=== PATIENT | male | born 1990 | race Hispanic/Latino ===

== ENCOUNTER 2019-07-18 07:59 | Emergency (ER) | payer SELFPAY ==
[2019-07-18 09:39] LABS: Basophils % (Auto) 0.3 % (0.0-1.8); Eosinophils # (Auto) 0.1 K/mm3 (0.0-0.4); Eosinophils % (Auto) 1.1 % (0.0-4.3); Hematocrit 50.7 % (35.5-45.6); Hemoglobin 16.8 gm/dl (11.8-15.2); Lymphocytes # (Auto) 2.6 K/mm3 (1.2-5.4); Lymphocytes % (Auto) 30.7 % (13.4-35.0); Mean Corpuscular HGB Conc 33 % (32-34); Mean Corpuscular Volume 83 fl (84-94); Monocytes # (Auto) 0.7 K/mm3 (0.0-0.8); Monocytes % (Auto) 8.2 % (0.0-7.3); Platelet Count 355 K/mm3 (140-440); Red Blood Count 6.14 M/mm3 (3.65-5.03); Red Cell Distribution Width 12.7 % (13.2-15.2)
[2019-07-18 10:06] LABS: Alanine Aminotransferase 68 units/L (7-56); Albumin 4.5 g/dL (3.9-5); BUN/Creatinine Ratio 11; Blood Urea Nitrogen 8 mg/dL (9-20); Calcium 9.5 mg/dL (8.4-10.2); Hemolysis Index 59
--- NOTE | 2019-07-18 10:34 | Emergency Department Report ---
ED Abdominal Pain HPI - General Chief Complaint: Abdominal Pain Stated Complaint: STOMACH PAIN/2 WKS PAIN Time Seen by Provider: 07/18/19 09:15 Source: patient Mode of arrival: Ambulatory Limitations: No Limitations - History of Present Illness Initial Comments: 29 YO COMES TO ER WITH LUQ ABD PAIN FOR WEEKS. NO N/V/D DID NOT SEE PCP NO OTHER HX ETOH OCC IDENTICAL TWIN BROTHER HAS DM POLYDYPSIA 15 POUND WEIGHT LOSS IN 2 MONTHS MD Complaint: abdominal pain Location: LUQ Radiation: none Migration to: no migration Quality: sharp Improves With: nothing Worsens With: nothing Associated Symptoms: denies other symptoms - Related Data Allergies Allergy/AdvReac Type Severity Reaction Status Date / Time No Known Allergies Allergy Verified 07/18/19 08:22 ED Review of Systems ROS: Stated complaint: STOMACH PAIN/2 WKS PAIN Other details as noted in HPI Comment: All other systems reviewed and negative ED Past Medical Hx - Past Medical History Previous Medical History?: Yes Additional medical history: appendicitis - Surgical History Past Surgical History?: Yes Hx Appendectomy: Yes - Family History Family history: other (IDENTICAL TWIN BROTHER HAS DM) - Social History Smoking Status: Current Every Day Smoker Substance Use Type: Alcohol ED Physical Exam - General Limitations: No Limitations General appearance: alert, in no apparent distress - Head Head exam: Present: atraumatic, normocephalic - Eye Eye exam: Present: normal appearance - ENT ENT exam: Present: mucous membranes moist - Neck Neck exam: Present: normal inspection - Respiratory Respiratory exam: Present: normal lung sounds bilaterally. Absent: respiratory distress - Cardiovascular Cardiovascular Exam: Present: regular rate, normal rhythm. Absent: systolic murmur, diastolic murmur, rubs, gallop - GI/Abdominal GI/Abdominal exam: Present: soft, normal bowel sounds - Rectal Rectal exam: Present: deferred - Extremities Exam Extremities exam: Present: normal inspection - Back Exam Back exam: Present: normal inspection - Neurological Exam Neurological exam: Present: alert, oriented X3 - Psychiatric Psychiatric exam: Present: normal affect, normal mood - Skin Skin exam: Present: warm, dry, intact, normal color. Absent: rash ED Course Vital Signs 07/18/19 08:07 Temperature 97.6 F Pulse Rate 73 Respiratory 16 Rate Blood Pressure 123/81 O2 Sat by Pulse 97 Oximetry ED Medical Decision Making - Lab Data Result diagrams: 07/18/19 09:26 07/18/19 09:26 - Medical Decision Making Labs 07/18/19 07/18/19 07/18/19 09:26 09:26 10:10 WBC 8.6 RBC 6.14 H Hgb 16.8 H Hct 50.7 H MCV 83 L MCH 27 L MCHC 33 RDW 12.7 L Plt Count 355 Lymph % (Auto) 30.7 [place] % (Auto) 8.2 H Eos % (Auto) 1.1 Baso % (Auto) 0.3 Lymph # 2.6 [place] # 0.7 Eos # 0.1 Baso # 0.0 Seg Neutrophils % 59.7 Seg Neutrophils # 5.1 Sodium 137 Potassium 4.7 Chloride 101.3 Carbon Dioxide 22 Anion Gap 18 BUN 8 L Creatinine 0.7 L Estimated GFR > 60 BUN/Creatinine Ratio 11 Glucose 236 H POC Glucose Calcium 9.5 Total Bilirubin 0.80 AST 38 ALT 68 H Alkaline Phosphatase 97 Total Protein 7.9 Albumin 4.5 Albumin/Globulin Ratio 1.3 Lipase 10 L Urine Color Yellow Urine Turbidity Clear Urine pH 7.0 Ur Specific [place] 1.031 H Urine Protein <15 mg/dl Urine Glucose (UA) >=500 Urine Ketones Tr Urine Blood Neg Urine Nitrite Neg Urine Bilirubin Neg Urine Urobilinogen < 2.0 Ur Leukocyte Esterase Neg Urine WBC (Auto) < 1.0 Urine RBC (Auto) 2.0 U Epithel Cells (Auto) 1.0 Urine Mucus Few 07/18/19 10:57 WBC RBC Hgb Hct MCV MCH MCHC RDW Plt Count Lymph % (Auto) [place] % (Auto) Eos % (Auto) Baso % (Auto) Lymph # [place] # Eos # Baso # Seg Neutrophils % Seg Neutrophils # Sodium Potassium Chloride Carbon Dioxide Anion Gap BUN Creatinine Estimated GFR BUN/Creatinine Ratio Glucose POC Glucose 197 H Calcium Total Bilirubin AST ALT Alkaline Phosphatase Total Protein Albumin Albumin/Globulin Ratio Lipase Urine Color Urine Turbidity Urine pH Ur Specific [place] Urine Protein Urine Glucose (UA) Urine Ketones Urine Blood Urine Nitrite Urine Bilirubin Urine Urobilinogen Ur Leukocyte Esterase Urine WBC (Auto) Urine RBC (Auto) U Epithel Cells (Auto) Urine Mucus Vital Signs 07/18/19 08:07 Temperature 97.6 F Pulse Rate 73 Respiratory 16 Rate Blood Pressure 123/81 O2 Sat by Pulse 97 Oximetry LABS NOTED UA NOTED BG NOTED NS X 2 IV NO TACHYCARDIA/HYPOTENSION GIVEN FAMILY HX PT BEING DC TO PCP FOR WORKUP FOR DM PT EDUCATED ON DIET MANAGEMENT FOR HYPERGLYCEMIA ON DC TAKING PO NON ILL NON TOXIC - Differential Diagnosis GASTRITIS/CHOLEY Critical care attestation.: If time is entered above; I have spent that time in minutes in the direct care of this critically ill patient, excluding procedure time. ED Disposition Clinical Impression: Hyperglycemia, Abdominal pain Disposition: DC-01 TO HOME OR SELFCARE Is pt being admited?: No Does the pt Need Aspirin: No Condition: Stable Instructions: Diabetic Hypoglycemia (ED), Meal Planning with Diabetes Exchanges (DC) Additional Instructions: DIABETIC DIET STAY WELL HYDRATED FOLLOW UP WITH PCP FOR WORKUP REFERRAL BELOW [employer] WEBSITE IS A GOOD SOURCE FOR INFORMATION Referrals: ISAIAH DEL REAL MD [Staff Physician] - 3-5 Days Time of Disposition: 11:55
[2019-07-18 10:44] LABS: Bilirubin,Urine NEG (Negative); Blood,Urine NEG (Negative); Color,Urine Yellow (Yellow); Mucus,Urine FEW /HPF; Protein,Urine <15 mg/dL mg/dL (Negative); Urobilinogen,Urine < 2.0 mg/dL (<2.0)
[2019-07-18 10:49] LABS: WBC,Urine < 1.0 /HPF (0.0-6.0)
[2019-07-18] MEDS ORDERED: SODIUM CHLORIDE 0.9% 1000 ML 1,000 ML IV ONE ×2 (10:55→11:48)
[2019-07-18 13:24] VITALS: BP 125/84
== END 2019-07-18 13:23 | disposition home or self-care (01) ==
LOC: ED 07:59
DX: R73.9 Hyperglycemia, unspecified (principal); F17.200 Nicotine dependence, unspecified, uncomplicated; Z90.89 Acquired absence of other organs
CPT/HCPCS: 36415; 80053; 81001; 82962; 83690; 85025; 99283; J7030

== ENCOUNTER 2019-07-23 18:43 | Emergency (ER) | payer SELFPAY ==
--- NOTE | 2019-07-23 19:07 | Event Note ---
ED Screening Note ED Screening Note: left sided abd pain that began since 07/05/19 intermittent episodes of n/v/d states he is also having chest discomfort described as a heaviness no dysuria no hematuria no fever normal BM today occ ETOH This initial assessment/diagnostic orders/clinical plan/treatment(s) is/are subject to change based on patients health status, clinical progression and re- assessment by fellow clinical providers in the ED. Further treatment and workup at subsequent clinical providers discretion. Patient/guardian urged not to elope from the ED as their condition may be serious if not clinically assessed and managed. Initial orders include: labs, XR chest with abd, EKG
--- NOTE | 2019-07-23 19:59 | XRay Report ---
ACUTE ABDOMINAL SERIES WITH PA CHEST, 4 VIEWS INDICATION / CLINICAL INFORMATION: abdominal pain, chest pain. COMPARISON: None available. FINDINGS: PA view of the chest is unremarkable. Normal heart size and normal pulmonary severity. Both lungs are well-expanded and clear. Views of the abdomen demonstrate a normal bowel gas pattern. No dilated loops of bowel and no visible free air. No abnormal calcifications identified. No osseous abnormality. IMPRESSION: No acute abdominal abnormality. No acute pulmonary disease. Signer Name: Gaye Valdez MD Signed: 07/23/2019 7:55 PM Workstation Name: [id number]
[2019-07-23 20:28] LABS: Basophils % (Auto) 0.3 % (0.0-1.8); Eosinophils # (Auto) 0.2 K/mm3 (0.0-0.4); Eosinophils % (Auto) 1.7 % (0.0-4.3); Hematocrit 46.5 % (35.5-45.6); Hemoglobin 15.8 gm/dl (11.8-15.2); Lymphocytes # (Auto) 4.3 K/mm3 (1.2-5.4); Mean Corpuscular HGB Conc 34 % (32-34); Mean Corpuscular Volume 82 fl (84-94); Monocytes # (Auto) 1.2 K/mm3 (0.0-0.8); Monocytes % (Auto) 9.3 % (0.0-7.3); Platelet Count 390 K/mm3 (140-440); Red Cell Distribution Width 12.9 % (13.2-15.2)
[2019-07-23 20:51] LABS: Alanine Aminotransferase 54 units/L (7-56); Albumin 4.5 g/dL (3.9-5); BUN/Creatinine Ratio 9; Blood Urea Nitrogen 6 mg/dL (9-20); Calcium 9.8 mg/dL (8.4-10.2); Hemolysis Index 17
[2019-07-23] MEDS ORDERED: FAMOTIDINE 20 MG/2 ML INJ IV ONE (21:47)
[2019-07-23] MEDS ORDERED: ONDANSETRON 4 MG/2 ML INJ IV ONE (21:47)
[2019-07-23] MEDS ORDERED: DICYCLOMINE 20 MG TAB PO ONE (21:47)
[2019-07-23] MEDS ORDERED: ALUM-MAG HYDROXIDE-SIMETHICONE 200-200-20MG/5ML ORAL LIQD 30 ML PO ONE (21:47)
[2019-07-23] MEDS ORDERED: LIDOCAINE VISCOUS 2% 15 ML ORAL LIQD PO ONE (21:47)
[2019-07-23] MEDS ORDERED: SODIUM CHLORIDE 0.9% 1000 ML 1,000 ML IV ONE (21:48)
[2019-07-23] MEDS ORDERED: KETOROLAC 30 MG/1 ML INJ IV ONE (21:50)
--- NOTE | 2019-07-23 23:19 | Cat Scan Report ---
CT OF THE ABDOMEN AND PELVIS WITH INTRAVENOUS CONTRAST INDICATION / CLINICAL INFORMATION: Mid to left abdominal pain with nausea. TECHNIQUE: The patient received 100 cc Omnipaque [address] scans at this location are performed using CT dose reduction for ALARA by means of automated exposure control. COMPARISON: None available. FINDINGS: ABDOMEN: There are multiple faintly calcified and noncalcified moderate sized stones in the gallbladd er. The gallbladder is significantly distended without wall thickening or bile duct dilatation. There is moderate generalized decreased density of the liver parenchyma compared to the spleen. The pancreas, adrenal glands, kidneys and bowel are normal. No adenopathy is identified. The lung bas es are clear. PELVIS: The distal ureters, urinary bladder and prostate gland are normal. The appendix is not seen a nd there is no evidence of diverticulitis. No abnormal mass or fluid collection is identified. I do n ot see a hernia. No acute osseous abnormality is identified. IMPRESSION: 1. Cholelithiasis. Significantly distended gallbladder raises the possibility of acute cholecystitis. 2. Moderate diffuse fatty infiltration of the liver. Signer Name: Bennie Springer MD Signed: 07/23/2019 11:15 PM Workstation Name: [id number]
--- NOTE | 2019-07-24 02:56 | Ultrasound Report ---
ULTRASOUND ABDOMEN, LIMITED (RIGHT UPPER QUADRANT) INDICATION: Abdominal pain with nausea. COMPARISON: CT of the abdomen and pelvis performed yesterday. FINDINGS: PANCREAS: No significant abnormality. LIVER: 20.6 cm in length with moderate generalized increased echogenicity compared to the right renal cortex. Normal directional blood flow in the main portal vein. GALLBLADDER: Multiple gallstones. The gallbladder is distended without wall thickening. There is gene ralized gallbladder sludge. BILE DUCTS: No significant abnormality. Common bile duct not well seen. FREE FLUID: None. ADDITIONAL FINDINGS: Images of the right kidney are unremarkable. IMPRESSION: 1. Cholelithiasis. Distended gallbladder containing sludge raises the possibility of acute cholecysti tis. 2. Hepatomegaly with evidence of moderate diffuse fatty infiltration. Signer Name: Bennie Springer MD Signed: 07/24/2019 2:52 AM Workstation Name: [id number]
--- NOTE | 2019-07-24 03:52 | Emergency Department Report ---
ED Abdominal Pain HPI - General Chief Complaint: Abdominal Pain Stated Complaint: ABD PIAN,CHEST PAIN Time Seen by Provider: 07/23/19 19:06 Source: patient Mode of arrival: Ambulatory Limitations: No Limitations - History of Present Illness Initial Comments: Patient is a 29-year-old male with history of non-insulin dependent diabetes and does not take any medications presents to the ED with complaint of acute onset persistent epigastric pain that radiates to the right upper quadrant and substernal chest with burning sensation intermittently for the last 2 months, worse in the last 8 hours with nausea and vomiting. Patient denies fever, chills, diarrhea, shortness of breath, back pain, sore throat, headache, dizziness, palpitations, diaphoresis, cough, headache, dysuria or urinary frequency and urgency and constipation. MD Complaint: abdominal pain (epigastric, RUQ), other (nausea and vomiting; substernal burning chest pain) -: Gradual, month(s) (2) Location: RUQ, epigastric Radiation: chest Migration to: no migration Severity: severe Severity scale (0 -10): 7 Quality: aching, sharp, burning Consistency: constant Improves With: nothing Worsens With: eating, vomiting Associated Symptoms: denies other symptoms, nausea, vomiting. denies: diarrhea, fever, chills, constipation, dysuria, hematochezia, melena, hematuria, anorexia, syncope, other - Related Data Previous Rx's Medication Instructions Recorded Last Taken Type Ciprofloxacin HCl [Ciprofloxacin 500 mg PO Q12HR #20 tab 07/24/19 Unknown Rx TAB] Dicyclomine [Bentyl] 20 mg PO Q6H PRN #24 tablet 07/24/19 Unknown Rx Famotidine [Pepcid] 20 mg PO Q12H #60 tablet 07/24/19 Unknown Rx Ondansetron [Zofran Odt] 4 mg PO Q6HR PRN #20 tab.rapdis 07/24/19 Unknown Rx metroNIDAZOLE [Flagyl] 500 mg PO Q8HR #30 tablet 07/24/19 Unknown Rx traMADoL [Ultram 50 MG tab] 50 mg PO Q6HR PRN #12 tablet 07/24/19 Unknown Rx Allergies Allergy/AdvReac Type Severity Reaction Status Date / Time No Known Allergies Allergy Verified 07/18/19 08:22 ED Review of Systems ROS: Stated complaint: ABD PIAN,CHEST PAIN Other details as noted in HPI Constitutional: denies: chills, fever Eyes: denies: eye pain, eye discharge, vision change ENT: denies: ear pain, throat pain Respiratory: denies: cough, shortness of breath, wheezing Cardiovascular: chest pain. denies: palpitations Endocrine: no symptoms reported Gastrointestinal: abdominal pain (epigastric, RUQ), nausea, vomiting. denies: diarrhea Genitourinary: denies: urgency, dysuria Musculoskeletal: denies: back pain, joint swelling, arthralgia Skin: denies: rash, lesions Neurological: denies: headache, weakness, paresthesias Psychiatric: denies: anxiety, depression Hematological/Lymphatic: denies: easy bleeding, easy bruising ED Past Medical Hx - Past Medical History Previous Medical History?: Yes Additional medical history: appendicitis - Surgical History Past Surgical History?: Yes Hx Appendectomy: Yes - Social History Smoking Status: Never Smoker Substance Use Type: None - Medications Home Medications: Home Medications Medication Instructions Recorded Confirmed Last Taken Type Ciprofloxacin HCl [Ciprofloxacin 500 mg PO Q12HR #20 tab 07/24/19 Unknown Rx TAB] Dicyclomine [Bentyl] 20 mg PO Q6H PRN #24 tablet 07/24/19 Unknown Rx Famotidine [Pepcid] 20 mg PO Q12H #60 tablet 07/24/19 Unknown Rx Ondansetron [Zofran Odt] 4 mg PO Q6HR PRN #20 tab.rapdis 07/24/19 Unknown Rx metroNIDAZOLE [Flagyl] 500 mg PO Q8HR #30 tablet 07/24/19 Unknown Rx traMADoL [Ultram 50 MG tab] 50 mg PO Q6HR PRN #12 tablet 07/24/19 Unknown Rx ED Physical Exam - General Limitations: No Limitations General appearance: alert, in no apparent distress - Head Head exam: Present: atraumatic, normocephalic, normal inspection - Eye Eye exam: Present: normal appearance, PERRL, EOMI Pupils: Present: normal accommodation - ENT ENT exam: Present: normal exam, normal orophraynx, mucous membranes moist, TM's normal bilaterally, normal external ear exam - Neck Neck exam: Present: normal inspection, full ROM - Respiratory Respiratory exam: Present: normal lung sounds bilaterally. Absent: respiratory distress, wheezes, chest wall tenderness, accessory muscle use, decreased breath sounds, prolonged expiratory - Cardiovascular Cardiovascular Exam: Present: regular rate, normal rhythm, normal heart sounds. Absent: systolic murmur, diastolic murmur, rubs, gallop - GI/Abdominal GI/Abdominal exam: Present: soft, tenderness (epigastric, RUQ), normal bowel sounds. Absent: guarding, rebound, hyperactive bowel sounds, hypoactive bowel sounds, organomegaly - Extremities Exam Extremities exam: Present: normal inspection, full ROM, normal capillary refill - Back Exam Back exam: Present: normal inspection, full ROM. Absent: tenderness, CVA tenderness (R), CVA tenderness (L), muscle spasm, paraspinal tenderness, vertebral tenderness - Neurological Exam Neurological exam: Present: alert, oriented X3, CN II-XII intact, normal gait, reflexes normal - Psychiatric Psychiatric exam: Present: normal affect, normal mood - Skin Skin exam: Present: warm, dry, intact, normal color. Absent: rash ED Course Vital Signs 07/23/19 19:08 Temperature 98 F Pulse Rate 98 H Respiratory 18 Rate Blood Pressure 138/80 O2 Sat by Pulse 100 Oximetry ED Medical Decision Making - Lab Data Result diagrams: 07/23/19 19:48 07/23/19 19:48 - EKG Data EKG shows normal: sinus rhythm Rate: normal - EKG Data Interpretation: normal EKG, nonspecific ST-T wave jw 07/24/19 03:53 The EKG shows normal sinus rhythm with ventricular rate of 82 beats per minute, with ST elevation suggestive of normal early repolarization pattern - Radiology Data Radiology results: report reviewed, image reviewed Findings [facility] [address] [place] [address] XRay Report Signed Patient: PÉREZ AVILA MR#: [id number] : 1990 Acct:[id number] Age/Sex: 29 / M ADM Date: 07/23/19 Loc: ED Attending Dr: Ordering Physician: LEESA VASQUEZ Date of Service: 07/23/19 Procedure(s): XR abd series w cxr 1V Accession Number(s): [id number] cc: LEESA VASQUEZ Fluoro Time In Minutes: ACUTE ABDOMINAL SERIES WITH PA CHEST, 4 VIEWS INDICATION / CLINICAL INFORMATION: abdominal pain, chest pain. COMPARISON: None available. FINDINGS: PA view of the chest is unremarkable. Normal heart size and normal pulmonary severity. Both lungs are well-expanded and clear. Views of the abdomen demonstrate a normal bowel gas pattern. No dilated loops of bowel and no visible free air. No abnormal calcifications identified. No osseous abnormality. IMPRESSION: No acute abdominal abnormality. No acute pulmonary disease. Signer Name: Gaye Valdez MD Signed: 07/23/2019 7:55 PM Workstation Name: [id number] Transcribed By: JR Dictated By: Gaye Valdez MD Electronically Authenticated By: Gaye Valdez MD Signed Date/Time: 07/23/191954 DD/ 53 -- Findings [facility] [address] [place] [address] Cat Scan Report Signed Patient: PÉERZ AVILA MR#: [id number] : 1990 Acct:[id number] Age/Sex: 29 / M ADM Date: 07/23/19 Loc: ED Attending Dr: Ordering Physician: LEESA MAR Date of Service: 07/23/19 Procedure(s): CT abdomen pelvis w con Accession Number(s): [id number] cc: LEESA MAR CT OF THE ABDOMEN AND PELVIS WITH INTRAVENOUS CONTRAST INDICATION / CLINICAL INFORMATION: Mid to left abdominal pain with nausea. TECHNIQUE: The patient received 100 cc Omnipaque [address] scans at this location are performed using CT dose reduction for ALARA by means of automated exposure c ontrol. COMPARISON: None available. FINDINGS: ABDOMEN: There are multiple faintly calcified and noncalcified moderate sized stones in the gallbladder. The gallbladder is significantly distended without wall thickening or bile duct dilatation. There is moderate generalized decreased density of the liver parenchyma compared to the spleen. The pancreas, adrenal glands, kidneys and bowel are normal. No adenopathy is identified. The lung bases are clear. PELVIS: The distal ureters, urinary bladder and prostate gland are normal. The appendix is not seen and there is no evidence of diverticulitis. No abnormal mass or fluid collection is identified. I do not see a hernia. No acute osseous abnormality is identified. IMPRESSION: 1. Cholelithiasis. Significantly distended gallbladder raises the possibility of acute cholecystitis. 2. Moderate diffuse fatty infiltration of the liver. Signer Name: Bennie Springer MD Signed: 07/23/2019 11:15 PM Workstation Name: [id number] Transcribed By: RT Dictated By: Bennie Springer MD Electronically Authenticated By: Bennie Springer MD Signed Date/Time: 07/23/192314 DD/ 10 TD/TT: --------- Findings [facility] [address] [place] [address] Ultrasound Report Signed Patient: PÉREZ AVILA MR#: [id number] : 1990 Acct:[id number] Age/Sex: 29 / M ADM Date: 07/23/19 Loc: ED Attending Dr: Ordering Physician: LEESA MAR Date of Service: 07/24/19 Procedure(s): US abdomen limited Accession Number(s): [id number] cc: LEESA MAR ULTRASOUND ABDOMEN, LIMITED (RIGHT UPPER QUADRANT) INDICATION: Abdominal pain with nausea. COMPARISON: CT of the abdomen and pelvis performed yesterday. FINDINGS: PANCREAS: No significant abnormality. LIVER: 20.6 cm in length with moderate generalized increased echogenicity compared to the right renal cortex. Normal directional blood flow in the main portal vein. GALLBLADDER: Multiple gallstones. The gallbladder is distended without wall thickening. There is generalized gallbladder sludge. BILE DUCTS: No significant abnormality. Common bile duct not well seen. FREE FLUID: None. ADDITIONAL FINDINGS: Images of the right kidney are unremarkable. IMPRESSION: 1. Cholelithiasis. Distended gallbladder containing sludge raises the possibility of acute cholecystitis. 2. Hepatomegaly with evidence of moderate diffuse fatty infiltration. Signer Name: Bennie Springer MD Signed: 07/24/2019 2:52 AM Workstation Name: [id number] Transcribed By: RT Dictated By: Bennie Springer MD Electronically Authenticated By: Bennie Springer MD Signed Date/Time: 07/24/19 0252 - Medical Decision Making This is a 29-year-old male who presented to the ED with complaint of acute onset persistent epigastric pain that radiates to the substernal chest and right upper quadrant area with a burning sensation, nausea and vomiting intermittently for the last 2 months, but worse in the last 8 hours. In the ED, patient is alert and oriented 3 and is not in distress. The patient was treated for pain in the ED, also given antiemetics and antacids in the ED. On reevaluation, patient's pain and nausea and vomiting resolved with medications. The EKG shows normal sinus rhythm with a ventricular rate of [address] elevation suggestive of probable normal early repolarization pattern. Lab test results show acute leukocytosis of 12,600, acute hyponatremia 132 mmol per liter and hyperglycemia of 173 mg/dL. The rest of the lab test results are nonactionable. Chest x-ray shows no acute cardiopulmonary M Lauro teas or pneumonitis. KUB abdomen x-ray shows nonspecific abdominal gas patterns with no peritoneal air or small bowel obstruction. Abdomen pelvis CT scan with contrast shows cholelithiasis with significantly distended gallbladder which raises the possibility of acute cholecystitis. There is also moderate diffuse fatty infiltration of the liver. The gallbladder ultrasound again shows cholelithiasis with distended gallbladder containing sludge raises the possibility of acute cholecystitis. Hepatomegaly with evidence of moderate diffuse fatty infiltration also seen. These findings were discussed with the ED attending physician Dr. Robins about his advised that the patient be discharged home empirically with oral antibiotics and the patient be referred to the general surgeon telecommunications project manager Dr. Grady for follow-up. Patient will definitely sent home on oral antibiotics, Flagyl and ciprofloxacin, pain medications, antacids and antiemetics, and was advised and encouraged to contact Dr. Grady's office first thing in the morning to schedule a follow-up appo intment. Patient was highly advised to return to the ED immediately if symptoms get worse. - Differential Diagnosis Cholelithiasis; Cholecystitis; GERD; ACS; Gastroenteritis; Gastritis Critical care attestation.: If time is entered above; I have spent that time in minutes in the direct care of this critically ill patient, excluding procedure time. ED Disposition Clinical Impression: Nausea and vomiting in adult, Hyperglycemia Abdominal pain Qualifiers: Abdominal location: epigastric Qualified Code(s): R10.13 - Epigastric pain Cholelithiasis Qualifiers: Cholelithiasis location: gallbladder Cholecystitis acuity: acute Biliary obst ruction: without biliary obstruction GERD (gastroesophageal reflux disease) Qualifiers: Esophagitis presence: without esophagitis Qualified Code(s): K21.9 - Gastro- esophageal reflux disease without esophagitis Disposition: TO HOME OR SELFCARE Is pt being admited?: No Does the pt Need Aspirin: No Condition: Stable Instructions: Cholelithiasis (ED), Biliary Colic (ED), Abdominal Pain (ED), Acute Nausea and Vomiting (ED), Gastroesophageal Reflux Disease (ED) Additional Instructions: Take medications with food, drink plenty of fluids and follow-up with the general surgeon Dr. Grady in 24-48 hours for further evaluation. Please contact Dr. Grady's office presently in the morning today 07/24/2019 to schedule a follow-up appointment. Return to the ED immediately if symptoms get worse. Prescriptions: Dicyclomine [Bentyl] 20 mg PO Q6H PRN #24 tablet PRN Reason: Nausea Ciprofloxacin HCl [Ciprofloxacin TAB] 500 mg PO Q12HR #20 tab metroNIDAZOLE [Flagyl] 500 mg PO Q8HR #30 tablet Famotidine [Pepcid] 20 mg PO Q12H #60 tablet traMADoL [Ultram 50 MG tab] 50 mg PO Q6HR PRN #12 tablet PRN Reason: Pain Ondansetron [Zofran Odt] 4 mg PO Q6HR PRN #20 tab.rapdis PRN Reason: Nausea Referrals: STARLA GRADY MD [Staff Physician] - [facility] Time of Disposition: 04:10 Print Language: ITALIAN
[2019-07-24 04:45] VITALS: BP 120/82
== END 2019-07-24 04:48 | disposition home or self-care (01) ==
LOC: ED 18:43
DX: K21.9 Gastro-esophageal reflux disease without esophagitis (principal); K80.80 Other cholelithiasis without obstruction; R73.9 Hyperglycemia, unspecified; Z79.899 Other long term (current) drug therapy; Z90.49 Acquired absence of other specified parts of digestive tract
CPT/HCPCS: 36415; 74022; 74177; 76705; 80053; 83690; 84484; 85025; 93005; 93010; 96361; 96374; 96375; 99285; J1885; J2405; J7030; Q9967

== ENCOUNTER 2019-07-31 16:19 | Inpatient (IN) | payer SELFPAY ==
[2019-07-31 19:24] LABS: Basophils # (Auto) 0.1 K/mm3 (0.0-0.1); Basophils % (Auto) 0.6 % (0.0-1.8); Eosinophils # (Auto) 0.2 K/mm3 (0.0-0.4); Eosinophils % (Auto) 1.4 % (0.0-4.3); Hematocrit 43.2 % (35.5-45.6); Hemoglobin 14.5 gm/dl (11.8-15.2); Lymphocytes # (Auto) 3.8 K/mm3 (1.2-5.4); Lymphocytes % (Auto) 28.9 % (13.4-35.0); Mean Corpuscular HGB Conc 34 % (32-34); Mean Corpuscular Volume 82 fl (84-94); Monocytes # (Auto) 1.6 K/mm3 (0.0-0.8); Platelet Count 515 K/mm3 (140-440); Red Blood Count 5.28 M/mm3 (3.65-5.03); Red Cell Distribution Width 12.6 % (13.2-15.2)
[2019-07-31] MEDS ORDERED: MORPHINE 2 MG/1 ML INJ IV ONE (19:39)
[2019-07-31] MEDS ORDERED: SODIUM CHLORIDE 0.9% 1000 ML 1,000 ML IV ONE (19:39)
[2019-07-31] MEDS ORDERED: ONDANSETRON 4 MG/2 ML INJ IV ONE (19:39)
[2019-07-31 19:52] LABS: Alanine Aminotransferase 29 units/L (7-56); Albumin 4.4 g/dL (3.9-5); BUN/Creatinine Ratio 12; Blood Urea Nitrogen 7 mg/dL (9-20); Calcium 9.5 mg/dL (8.4-10.2); Hemolysis Index 26
[2019-07-31 20:06] LABS: Bilirubin,Urine NEG (Negative); Blood,Urine NEG (Negative); Color,Urine Yellow (Yellow); Mucus,Urine FEW /HPF; Protein,Urine <15 mg/dL mg/dL (Negative); Urobilinogen,Urine < 2.0 mg/dL (<2.0)
[2019-07-31] MEDS ORDERED: PIPERACIL/TAZOBACTA 4.5/NS 100 4.5 GM/100 ML VIAL IV ONE (20:06)
--- NOTE | 2019-07-31 20:47 | Emergency Department Report ---
ED Abdominal Pain HPI - General Chief Complaint: Abdominal Pain Stated Complaint: POSS GALLSTONE/ABD/BACK PAIN Time Seen by Provider: 07/31/19 19:01 Source: patient Mode of arrival: Ambulatory Limitations: No Limitations - History of Present Illness Initial Comments: This is a 29-year-old male nontoxic, well nourished in appearance, no acute signs of distress presents to the ED with c/o of nausea and vomiting and abdominal pain 1 month. Patient describes vomiting as food content and yellow gastric acid. Patient describes abdominal pain as cramping and aching with level of 8/10 to to right upper quad. Patient denies chest pain, short of breath, fever, chills, headache, stiff neck, numbness or tingling. Patient denies any diarrhea or constipation. Patient denies any recent travels. Patient denies any allergies. MD Complaint: abdominal pain -: month(s) (1) Location: RUQ Radiation: R flank Migration to: no migration Severity: mild Severity scale (0 -10): 8 Quality: cramping, aching Consistency: constant Improves With: nothing Worsens With: nothing Associated Symptoms: nausea, vomiting. denies: diarrhea, fever, chills, constipation, dysuria, hematemesis, hematochezia, melena, hematuria, anorexia, syncope - Related Data Previous Rx's Medication Instructions Recorded Last Taken Type Ciprofloxacin HCl [Ciprofloxacin 500 mg PO Q12HR #20 tab 07/24/19 Unknown Rx TAB] Dicyclomine [Bentyl] 20 mg PO Q6H PRN #24 tablet 07/24/19 Unknown Rx Famotidine [Pepcid] 20 mg PO Q12H #60 tablet 07/24/19 Unknown Rx Ondansetron [Zofran Odt] 4 mg PO Q6HR PRN #20 tab.rapdis 07/24/19 Unknown Rx metroNIDAZOLE [Flagyl] 500 mg PO Q8HR #30 tablet 07/24/19 Unknown Rx traMADoL [Ultram 50 MG tab] 50 mg PO Q6HR PRN #12 tablet 07/24/19 Unknown Rx Allergies Allergy/AdvReac Type Severity Reaction Status Date / Time No Known Allergies Allergy Verified 07/18/19 08:22 ED Review of Systems ROS: Stated complaint: POSS GALLSTONE/ABD/BACK PAIN Other details as noted in HPI Constitutional: denies: chills, fever Eyes: denies: eye pain, eye discharge, vision change ENT: denies: ear pain, throat pain Respiratory: denies: cough, shortness of breath, wheezing Cardiovascular: denies: chest pain, palpitations Endocrine: no symptoms reported Gastrointestinal: abdominal pain, nausea, vomiting. denies: diarrhea Genitourinary: denies: urgency, dysuria Musculoskeletal: denies: back pain, joint swelling, arthralgia Skin: denies: rash, lesions Neurological: denies: headache, weakness, paresthesias Psychiatric: denies: anxiety, depression Hematological/Lymphatic: denies: easy bleeding, easy bruising ED Past Medical Hx - Past Medical History Previous Medical History?: No Additional medical history: gallstone - Surgical History Past Surgical History?: Yes Hx Appendectomy: Yes - Social History Smoking Status: Never Smoker Substance Use Type: None - Medications Home Medications: Home Medications Medication Instructions Recorded Confirmed Last Taken Type Ciprofloxacin HCl [Ciprofloxacin 500 mg PO Q12HR #20 tab 07/24/19 07/31/19 Unknown Rx TAB] Dicyclomine [Bentyl] 20 mg PO Q6H PRN #24 tablet 07/24/19 07/31/19 Unknown Rx Famotidine [Pepcid] 20 mg PO Q12H #60 tablet 07/24/19 07/31/19 Unknown Rx Ondansetron [Zofran Odt] 4 mg PO Q6HR PRN #20 tab.rapdis 07/24/19 07/31/19 Unknown Rx metroNIDAZOLE [Flagyl] 500 mg PO Q8HR #30 tablet 07/24/19 07/31/19 Unknown Rx traMADoL [Ultram 50 MG tab] 50 mg PO Q6HR PRN #12 tablet 07/24/19 07/31/19 Unknown Rx ED Physical Exam - General Limitations: No Limitations General appearance: alert, in no apparent distress - Head Head exam: Present: atraumatic, normocephalic - Eye Eye exam: Present: normal appearance - Neck Neck exam: Present: normal inspection, full ROM. Absent: tenderness, meningismus, lymphadenopathy - Respiratory Respiratory exam: Present: normal lung sounds bilaterally. Absent: respiratory distress, wheezes, rales, rhonchi, stridor, chest wall tenderness, accessory muscle use, decreased breath sounds, prolonged expiratory - Cardiovascular Cardiovascular Exam: Present: regular rate, normal rhythm, normal heart sounds. Absent: bradycardia, tachycardia, irregular rhythm, systolic murmur, diastolic murmur, rubs, gallop - GI/Abdominal GI/Abdominal exam: Present: soft, tenderness, normal bowel sounds. Absent: dist ended, guarding, rebound, rigid, diminished bowel sounds - Extremities Exam Extremities exam: Present: normal inspection, full ROM - Back Exam Back exam: Present: normal inspection, full ROM. Absent: tenderness, CVA tende rness (R), CVA tenderness (L), muscle spasm, paraspinal tenderness, vertebral tenderness, rash noted - Neurological Exam Neurological exam: Present: alert, oriented X3, normal gait - Psychiatric Psychiatric exam: Present: normal affect, normal mood - Skin Skin exam: Present: warm, dry, intact, normal color. Absent: rash ED Course Vital Signs 07/31/19 07/31/19 07/31/19 19:00 20:15 20:45 Temperature 98.1 F Pulse Rate 84 Respiratory 18 18 18 Rate Blood Pressure 148/87 Blood Pressure [Left] O2 Sat by Pulse 100 Oximetry 07/31/19 22:30 Temperature 97.5 F L Pulse Rate 72 Respiratory 16 Rate Blood Pressure Blood Pressure 121/71 [Left] O2 Sat by Pulse 99 Oximetry - Reevaluation(s) Reevaluation #1: 07/31/19 20:52 Patient is speaking in full sentences with no signs of distress noted. - Consultations Consultation #1: 07/31/19 20:[address] Velasquez (general surgeon) about patient history, physical exam, and previous US/CT results and stated place patient NPO, IV ant ibiotics and admitted patient on hospitalist. Consultation #2: 07/31/19 23:51 Patient has been consulted with Dr. Merino (hospitalist) about patient history, physical exam, and accepts patient to services. ED Medical Decision Making - Lab Data Result diagrams: 07/31/19 19:10 07/31/19 19:10 - Medical Decision Making 29-year-old male that presents with acute cholecystitis. Patient is stable and was examined by me. Patient was consulted with general surgeon as well as duarte berkowitz. Patient is admitted with hospitalist services. Patient placed on nothing by mouth, receive Zosyn, IV fluids. Labs obtained. At time of admission, the patient does not seem toxic or ill in appearance. No acute signs of distress noted. Patient agrees to admission treatment plan of care. No further questions noted by the patient. Critical care attestation.: If time is entered above; I have spent that time in minutes in the direct care of this critically ill patient, excluding procedure time. ED Disposition Clinical Impression: Acute cholecystitis, Intractable pain Disposition: OP ADMIT IP TO THIS HOSP Is pt being admited?: Yes Does the pt Need Aspirin: No Condition: Stable
[2019-07-31] MEDS ORDERED: ONDANSETRON 4 MG/2 ML INJ IV PRN (22:08)
[2019-07-31] MEDS ORDERED: ACETAMINOPHEN 325 MG TAB PO PRN (22:08)
--- NOTE | 2019-07-31 23:27 | History and Physical Report ---
History of Present Illness Date of examination: 07/31/19 Date of admission: 07/31/19 22:08 Chief complaint: Abdominal pain History of present illness: 29-year-old male presenting to the emergency room today complaining of abdominal pain that has been ongoing for about a month. He was seen in the emergency room sometime in June 2019 with similar complaints. Indicates he was diagnosed with some gallstones and discharged home. He has been having some nausea and vomiting and associated abdominal pain. Abdominal pain is said to be crampy and more on the right upper abdomen. There is no no relieving or exacerbating factor. He denies any fever or chills, de nies any chest pain or shortness of breath. He also indicates that he has had 1 episode of loose stool today. He denies any bright red blood per rectum and denies any black stool. Evaluation in the emergency room today reveals cholecystitis. General surgeon has been consulted and patient will be promptly evaluated. Past History Past Medical History: No medical history Past Surgical History: appendectomy Social history: smoking (Smokes 1 or 2 cigarettes a month), alcohol abuse (Drinks alcohol occasionally) Family history: other (History of gallstones in the family, father and brother had diabetes mellitus) Medications and Allergies Allergies Allergy/AdvReac Type Severity Reaction Status Date / Time No Known Allergies Allergy Verified 07/18/19 08:22 Home Medications Medication Instructions Recorded Confirmed Last Taken Type Ciprofloxacin HCl [Ciprofloxacin 500 mg PO Q12HR #20 tab 07/24/19 07/31/19 Unknown Rx TAB] Dicyclomine [Bentyl] 20 mg PO Q6H PRN #24 tablet 07/24/19 07/31/19 Unknown Rx Famotidine [Pepcid] 20 mg PO Q12H #60 tablet 07/24/19 07/31/19 Unknown Rx Ondansetron [Zofran Odt] 4 mg PO Q6HR PRN #20 tab.rapdis 07/24/19 07/31/19 Unknown Rx metroNIDAZOLE [Flagyl] 500 mg PO Q8HR #30 tablet 07/24/19 07/31/19 Unknown Rx traMADoL [Ultram 50 MG tab] 50 mg PO Q6HR PRN #12 tablet 07/24/19 07/31/19 Unknown Rx Active Meds: Active Medications Acetaminophen (Tylenol) 650 mg PO Q4H PRN PRN Reason: Pain MILD(1-3)/Fever >100.5/HAQ Sodium Chloride (Nacl 0.9% 1000 Ml) 1,000 mls @ 125 mls/hr IV DIRECT HEATHER Morphine Sulfate (Morphine) 2 mg IV Q4H PRN PRN Reason: Pain, Moderate (4-6) Ondansetron HCl (Zofran) 4 mg IV Q8H PRN PRN Reason: Nausea And Vomiting Sodium Chloride (Sodium Chloride Flush Syringe 10 Ml) 10 ml IV BID HEATHER Sodium Chloride (Sodium Chloride Flush Syringe 10 Ml) 10 ml IV PRN PRN PRN Reason: LINE FLUSH Review of Systems Constitutional: no weight loss, no fever, no chills Ears, nose, mouth and throat: no nasal congestion, no nasal discharge Cardiovascular: no chest pain, no palpitations, no edema, no syncope, no shortness of breath Respiratory: no cough with sputum, no shortness of breath, no congestion Gastrointestinal: abdominal pain, nausea, diarrhea, no vomiting Genitourinary Male: no dysuria, no hematuria Integumentary: no rash, no pruritis Neurological: no weakness, no syncope, no vertigo, no headaches Exam - Constitutional Vitals: Temp Pulse Resp BP Pulse Ox 97.5 F L 72 16 121/71 99 07/31/19 22:30 07/31/19 22:30 07/31/19 22:30 07/31/19 22:30 07/31/19 22:30 General appearance: Present: no acute distress, well-nourished - EENT Eyes: Present: PERRL, EOM intact ENT: hearing intact, clear oral mucosa, dentition normal - Neck Neck: Present: supple, normal ROM, rigidity - Respiratory Respiratory: bilateral: CTA - Cardiovascular Rhythm: regular Heart Sounds: Present: S1 & S2 - Extremities Extremities: no ischemia, No edema, Full ROM Peripheral Pulses: within normal limits - Abdominal General gastrointestinal: Present: soft, tender, non-distended Localized gastrointestinal: tender: RUQ, guarding: RUQ - Integumentary Integumentary: Present: clear, warm, dry - Musculoskeletal Musculoskeletal: strength equal bilaterally - Psychiatric Psychiatric: appropriate mood/affect, intact judgment & insight, cooperative - Neurologic Neurologic: CNII-XII intact, moves all extremities Results - Labs CBC & Chem 7: 07/31/19 19:10 07/31/19 19:10 Labs: Abnormal lab results 07/31/19 07/31/19 Range/Units 19:10 19:10 WBC 13.0 H (4.5-11.0) K/mm3 RBC 5.28 H (3.65-5.03) M/mm3 MCV 82 L (84-94) fl MCH 27 L (28-32) pg RDW 12.6 L (13.2-15.2) % Plt Count 515 H (140-440) K/mm3 Pitkin % (Auto) 12.0 H (0.0-7.3) % Pitkin # 1.6 H (0.0-0.8) K/mm3 BUN 7 L (9-20) mg/dL Creatinine 0.6 L (0.8-1.5) mg/dL Glucose 130 H (75-100) mg/dL Lipase 11 L (13-60) units/L Assessment and Plan - Patient Problems (1) Cholecystitis Current Visit: Yes Status: Acute Plan to address problem: Patient has been placed n.p.o. General surgeon has been consulted patient will be promptly evaluated. He is also placed on empiric IV antibiotics. (2) Abdominal pain Current Visit: No Status: Acute Qualifiers: Abdominal location: epigastric Qualified Code(s): R10.13 - Epigastric pain Plan to address problem: Pain secondary to cholecystitis. Place patient on IV analgesic medication as needed. (3) Nausea and vomiting in adult Current Visit: No Status: Acute Plan to address problem: Has been placed on IV Zofran. We also placed on IV fluid. (4) DVT prophylaxis Current Visit: Yes Status: Acute Plan to address problem: We will place him sequential compression device.
[2019-08-01] MEDS: SODIUM CHLORIDE 0.9% 1000 ML 1,000 ML IV SCH ×3 (00:35→21:24)
[2019-08-01] MEDS: MORPHINE 2 MG/1 ML INJ IV PRN ×3 (01:08→09:25)
[2019-08-01] MEDS: PIPERACIL/TAZOBACTA 4.5/NS 100 4.5 GM/100 ML VIAL IV SCH (05:21)
[2019-08-01] MEDS ORDERED: PIPERACILLIN/TAZOBACTAM 3.375 3.375 GM/50 ML BAG IV SCH (06:00)
[2019-08-01 07:22] LABS: Basophils % (Auto) 0.2 % (0.0-1.8); Eosinophils # (Auto) 0.2 K/mm3 (0.0-0.4); Eosinophils % (Auto) 1.8 % (0.0-4.3); Hematocrit 42.2 % (35.5-45.6); Hemoglobin 14.3 gm/dl (11.8-15.2); Lymphocytes # (Auto) 3.5 K/mm3 (1.2-5.4); Lymphocytes % (Auto) 35.3 % (13.4-35.0); Mean Corpuscular HGB Conc 34 % (32-34); Mean Corpuscular Volume 82 fl (84-94); Monocytes # (Auto) 1.2 K/mm3 (0.0-0.8); Monocytes % (Auto) 12.5 % (0.0-7.3); Platelet Count 472 K/mm3 (140-440); Red Blood Count 5.13 M/mm3 (3.65-5.03); Red Cell Distribution Width 12.7 % (13.2-15.2)
[2019-08-01 07:26] LABS: INR 1.17 (0.87-1.13)
[2019-08-01 07:27] LABS: Partial Thromboplastin Time 33.7 Sec. (24.2-36.6)
[2019-08-01 07:40] LABS: BUN/Creatinine Ratio 9; Blood Urea Nitrogen 6 mg/dL (9-20); Calcium 9.2 mg/dL (8.4-10.2); Hemolysis Index 1
--- NOTE | 2019-08-01 09:56 | Consultation ---
History of Present Illness Consult date: 08/01/19 Reason for consult: gallstones Chief complaint: abdominal pain - History of present illness History of present illness: A 1-year-old male with no past medical history presented to the emergency room with complaints of epigastric abdominal pain radiating to his back that has been constant. The patient presented to additional times last 2 weeks with similar pain. He was found to have gallstones but was managed conservatively with antibiotics and diet modification and discharged home. This time he states, despite only eating solid and drinking Gatorade, his pain returned and is persistent and severe. The pain is sharp. There are no alleviating or exacerbating factors. He denies fevers, chills, chest pain, shortness of breath. He did have mild nausea but no vomiting. Past History Past Medical History: No medical history Past Surgical History: appendectomy (open) Social history: smoking (Smokes 1 or 2 cigarettes a month), alcohol abuse (Drinks alcohol occasionally) Family history: other (History of gallstones in the family, father and brother had diabetes mellitus) Medications and Allergies Allergies Allergy/AdvReac Type Severity Reaction Status Date / Time No Known Allergies Allergy Verified 07/18/19 08:22 Home Medications Medication Instructions Recorded Confirmed Last Taken Type Ciprofloxacin HCl [Ciprofloxacin 500 mg PO Q12HR #20 tab 07/24/19 07/31/19 Unknown Rx TAB] Dicyclomine [Bentyl] 20 mg PO Q6H PRN #24 tablet 07/24/19 07/31/19 Unknown Rx Famotidine [Pepcid] 20 mg PO Q12H #60 tablet 07/24/19 07/31/19 Unknown Rx Ondansetron [Zofran Odt] 4 mg PO Q6HR PRN #20 tab.rapdis 07/24/19 07/31/19 Unknown Rx metroNIDAZOLE [Flagyl] 500 mg PO Q8HR #30 tablet 07/24/19 07/31/19 Unknown Rx traMADoL [Ultram 50 MG tab] 50 mg PO Q6HR PRN #12 tablet 07/24/19 07/31/19 Unknown Rx Active Meds: Active Medications Acetaminophen (Tylenol) 650 mg PO Q4H PRN PRN Reason: Pain MILD(1-3)/Fever >100.5/HAQ Sodium Chloride (Nacl 0.9% 1000 Ml) 1,000 mls @ 125 mls/hr IV DIRECT HEATHER Last Admin: 08/01/19 08:34 Dose: 125 mls/hr Documented by: Piperacillin Sod/Tazobactam Sod (Zosyn/Ns 4.5gm/100ml) 4.5 gm in 100 mls @ 200 mls/hr IV Q8HR HEATHER; Protocol Last Admin: 08/01/19 05:21 Dose: 200 mls/hr Documented by: Morphine Sulfate (Morphine) 2 mg IV Q4H PRN PRN Reason: Pain, Moderate (4-6) Last Admin: 08/01/19 09:25 Dose: 2 mg Documented by: Ondansetron HCl (Zofran) 4 mg IV Q8H PRN PRN Reason: Nausea And Vomiting Sodium Chloride (Sodium Chloride Flush Syringe 10 Ml) 10 ml IV BID HEATHER Sodium Chloride (Sodium Chloride Flush Syringe 10 Ml) 10 ml IV PRN PRN PRN Reason: LINE FLUSH Last Admin: 08/01/19 01:09 Dose: 10 ml Documented by: Review of Systems All systems: negative (10 point review of systems was performed and negative except for that listed in HPI) Exam Vital Signs Temp Pulse Resp BP Pulse Ox 98.1 F 84 18 148/87 100 07/31/19 19:00 07/31/19 19:00 07/31/19 19:00 07/31/19 19:00 07/31/19 19:00 Narrative exam: General: Awake, alert, oriented 3. No apparent distress ENT: No scleral icterus or conjunctival pallor CV: S1, S2 present Respiratory: No audible wheezes Abd: Soft, nondistended, tenderness to palpation in the epigastrium and right upper quadrant. There is a well-healed lower midline surgical scar Ext: No clubbing, cyanosis, edema Results - Labs 08/01/19 05:05 08/01/19 05:05 Abnormal lab results 07/31/19 07/31/19 08/01/19 Range/Units 19:10 19:10 05:05 WBC 13.0 H (4.5-11.0) K/mm3 RBC 5.28 H 5.13 H (3.65-5.03) M/mm3 MCV 82 L 82 L (84-94) fl MCH 27 L (28-32) pg RDW 12.6 L 12.7 L (13.2-15.2) % Plt Count 515 H 472 H (140-440) K/mm3 Lymph % (Auto) 35.3 H (13.4-35.0) % Gage % (Auto) 12.0 H 12.5 H (0.0-7.3) % Gage # 1.6 H 1.2 H (0.0-0.8) K/mm3 PT (12.2-14.9) Sec. INR (0.87-1.13) BUN 7 L (9-20) mg/dL Creatinine 0.6 L (0.8-1.5) mg/dL Glucose 130 H (75-100) mg/dL Lipase 11 L (13-60) units/L 08/01/19 08/01/19 Range/Units 05:05 05:05 WBC (4.5-11.0) K/mm3 RBC (3.65-5.03) M/mm3 MCV (84-94) fl MCH (28-32) pg RDW (13.2-15.2) % Plt Count (140-440) K/mm3 Lymph % (Auto) (13.4-35.0) % Gage % (Auto) (0.0-7.3) % Gage # (0.0-0.8) K/mm3 PT 15.1 H (12.2-14.9) Sec. INR 1.17 H (0.87-1.13) BUN 6 L (9-20) mg/dL Creatinine 0.7 L (0.8-1.5) mg/dL Glucose 123 H (75-100) mg/dL Lipase (13-60) units/L Diabetes panel 07/31/19 08/01/19 Range/Units 19:10 05:05 Sodium 137 140 (137-145) mmol/L Potassium 4.2 3.7 (3.6-5.0) mmol/L Chloride 100.3 103.9 (98-107) mmol/L Carbon Dioxide 25 23 (22-30) mmol/L BUN 7 L 6 L (9-20) mg/dL Creatinine 0.6 L 0.7 L (0.8-1.5) mg/dL Glucose 130 H 123 H (75-100) mg/dL Calcium 9.5 9.2 (8.4-10.2) mg/dL AST 21 (5-40) units/L ALT 29 (7-56) units/L Alkaline Phosphatase 84 (35-129) units/L Total Protein 7.1 (6.3-8.2) g/dL Albumin 4.4 (3.9-5) g/dL Calcium panel 07/31/19 08/01/19 Range/Units 19:10 05:05 Calcium 9.5 9.2 (8.4-10.2) mg/dL Albumin 4.4 (3.9-5) g/dL Pituitary panel 07/31/19 08/01/19 Range/Units 19:10 05:05 Sodium 137 140 (137-145) mmol/L Potassium 4.2 3.7 (3.6-5.0) mmol/L Chloride 100.3 103.9 (98-107) mmol/L Carbon Dioxide 25 23 (22-30) mmol/L BUN 7 L 6 L (9-20) mg/dL Creatinine 0.6 L 0.7 L (0.8-1.5) mg/dL Glucose 130 H 123 H (75-100) mg/dL Calcium 9.5 9.2 (8.4-10.2) mg/dL Adrenal panel 07/31/19 08/01/19 Range/Units 19:10 05:05 Sodium 137 140 (137-145) mmol/L Potassium 4.2 3.7 (3.6-5.0) mmol/L Chloride 100.3 103.9 (98-107) mmol/L Carbon Dioxide 25 23 (22-30) mmol/L BUN 7 L 6 L (9-20) mg/dL Creatinine 0.6 L 0.7 L (0.8-1.5) mg/dL Glucose 130 H 123 H (75-100) mg/dL Calcium 9.5 9.2 (8.4-10.2) mg/dL Total Bilirubin 0.40 (0.1-1.2) mg/dL AST 21 (5-40) units/L ALT 29 (7-56) units/L Alkaline Phosphatase 84 (35-129) units/L Total Protein 7.1 (6.3-8.2) g/dL Albumin 4.4 (3.9-5) g/dL - Imaging CT scan - abdomen: report reviewed, image reviewed CT scan - pelvis: report reviewed, image reviewed US - abdomen: report reviewed, image reviewed Assessment and Plan 29 yo M with acute cholecystitis Plan: 1. NPO 2. IVF 3. IV abx 4. prn pain and nausea control 5. recommend cholecystectomy. All risks, benefits, alternatives to surgery were discussed with the patient and questions answered. Patient is agreeable to proceed with robotic-assisted cholecystectomy, possible open Will proceed to OR today as add on case. Thank you, please call with questions.
[2019-08-01] MEDS ORDERED: PROPOFOL 200 MG/20 ML VIAL IV ONE (12:00)
[2019-08-01] MEDS ORDERED: LACTATED RINGERS 1,000 ML ONE (12:00)
[2019-08-01] MEDS ORDERED: HYDROmorphone 1 MG/1 ML INJ ONE (12:00)
[2019-08-01] MEDS ORDERED: FLU VACC QUAD 2019-20 (3 YR UP)/PF 60 MCG/0.5 ML SYRINGE IM ONE (12:00)
[2019-08-01] MEDS ORDERED: ROCURONIUM 50 MG/5 ML INJ IV ONE (12:01)
[2019-08-01] MEDS ORDERED: LIDOCAINE MPF (2%) 20 MG/1 ML VIAL 5 ML ONE (12:01)
[2019-08-01] MEDS ORDERED: LIDOCAINE (1%) 10 MG/1 ML VIAL 20 ML MDV ONE (12:03)
[2019-08-01] MEDS ORDERED: BUPIVACAINE/PF (0.5%) 5 MG/1 ML 30 ML VIAL INFILTRATI ONE ×2 (12:03→13:50)
[2019-08-01] MEDS ORDERED: LACTATED RINGERS 1,000 ML IV SCH (12:25)
--- NOTE | 2019-08-01 12:31 | Anesthesia Consultation ---
Anesthesia Consult and Med Hx Date of service: 08/01/19 - Airway Anesthetic Teeth Evaluation: Good (crowded teeth, overbite) ROM Head & Neck: Adequate Mental/Hyoid Distance: Adequate Mallampati Class: Class III Intubation Access Assessment: Possibly Difficult - Pre-Operative Health Status ASA Pre-Surgery Classification: ASA2 Proposed Anesthetic Plan: General - Pulmonary Hx Smoking: Yes (1-2 cig/month) - Endocrine Hx Liver Disease: Yes (gallbladder disease) - Other Systems Hx Alcohol Use: Yes (occasionally) Hx Obesity: Yes (BMI 34.6)
--- NOTE | 2019-08-01 12:31 | Anesthesia Day of Surgery ---
Anesthesia Day of Surgery - Day of Surgery Patient Examined: Yes Patient H&P Reviewed: Yes Patient is NPO: Yes
[2019-08-01] MEDS ORDERED: MIDAZOLAM 2 MG/2 ML INJ IV NR (13:00)
[2019-08-01] MEDS ORDERED: FAMOTIDINE 20 MG/2 ML INJ IV NR (13:00)
[2019-08-01] MEDS ORDERED: dexAMETHasone 20 MG/5 ML VIAL ONE (13:00)
[2019-08-01] MEDS ORDERED: ONDANSETRON 4 MG/2 ML INJ ONE (13:00)
[2019-08-01] MEDS ORDERED: fentaNYL 100 MCG/2 ML INJ ONE (13:45)
--- NOTE | 2019-08-01 13:45 | Progress Note ---
Assessment and Plan Assessment and plan: 29-year-old man who presents to the hospital with recurrent abdominal pain. He has been seen recently this month, he was found to have gallstones. He presents with worsening right upper quadrant pain Plan to OR today for cholecystectomy, pain control IV pain meds, antiemetics supportive care DVT prophylaxis early ambulation Diagnosis Acute cholecystitis History Interval history: Review of systems Constitutional: No fevers, no malaise, no joint pains CVS: No chest pain, no orthopnea, no pedal edema GI: Continues to complain of right upper quadrant pain and nausea Respiratory: , no wheezing, no coughing Hospitalist Physical - Physical exam Narrative exam: General.: Appears well, no distress, nontoxic HEENT: Moist mucous membranes, extraocular muscles intact, no lymphadenopathy Neck: supple Cardiac: S1-S2 heard Lungs: clear to auscultation bilaterally Abdomen: soft , right upper quadrant tender Extremities: no edema clubbing or cyanosis Skin: no rash or lesions Neurologic: no gross focal deficits Psych: calm, and cooperative - Constitutional Vitals: Temp Pulse Resp BP Pulse Ox 98.1 F 82 16 139/85 100 08/01/19 11:55 08/01/19 11:55 08/01/19 11:55 08/01/19 11:55 08/01/19 11:55 General appearance: Present: no acute distress, well-nourished Results - Labs CBC & Chem 7: 08/01/19 05:05 08/01/19 05:05 Labs: Laboratory Last Values WBC 9.9 K/mm3 (4.5-11.0) 08/01/19 05:05 RBC 5.13 M/mm3 (3.65-5.03) H 08/01/19 05:05 Hgb 14.3 gm/dl (11.8-15.2) 08/01/19 05:05 Hct 42.2 % (35.5-45.6) 08/01/19 05:05 MCV 82 fl (84-94) L 08/01/19 05:05 MCH 28 pg (28-32) 08/01/19 05:05 MCHC 34 % (32-34) 08/01/19 05:05 RDW 12.7 % (13.2-15.2) L 08/01/19 05:05 Plt Count 472 K/mm3 (140-440) H 08/01/19 05:05 Lymph % (Auto) 35.3 % (13.4-35.0) H 08/01/19 05:05 Preston % (Auto) 12.5 % (0.0-7.3) H 08/01/19 05:05 Eos % (Auto) 1.8 % (0.0-4.3) 08/01/19 05:05 Baso % (Auto) 0.2 % (0.0-1.8) 08/01/19 05:05 Lymph # 3.5 K/mm3 (1.2-5.4) 08/01/19 05:05 Preston # 1.2 K/mm3 (0.0-0.8) H 08/01/19 05:05 Eos # 0.2 K/mm3 (0.0-0.4) 08/01/19 05:05 Baso # 0.0 K/mm3 (0.0-0.1) 08/01/19 05:05 Seg Neutrophils % 50.2 % (40.0-70.0) 08/01/19 05:05 Seg Neutrophils # 5.0 K/mm3 (1.8-7.7) 08/01/19 05:05 PT 15.1 Sec. (12.2-14.9) H 08/01/19 05:05 INR 1.17 (0.87-1.13) H 08/01/19 05:05 APTT 33.7 Sec. (24.2-36.6) 08/01/19 05:05 Sodium 140 mmol/L (137-145) 08/01/19 05:05 Potassium 3.7 mmol/L (3.6-5.0) 08/01/19 05:05 Chloride 103.9 mmol/L (98-107) 08/01/19 05:05 Carbon Dioxide 23 mmol/L (22-30) 08/01/19 05:05 Anion Gap 17 mmol/L 08/01/19 05:05 BUN 6 mg/dL (9-20) L 08/01/19 05:05 Creatinine 0.7 mg/dL (0.8-1.5) L 08/01/19 05:05 Estimated GFR > 60 ml/min 08/01/19 05:05 BUN/Creatinine Ratio 9 % 08/01/19 05:05 Glucose 123 mg/dL (75-100) H 08/01/19 05:05 Calcium 9.2 mg/dL (8.4-10.2) 08/01/19 05:05 Total Bilirubin 0.40 mg/dL (0.1-1.2) 07/31/19 19:10 AST 21 units/L (5-40) 07/31/19 19:10 ALT 29 units/L (7-56) 07/31/19 19:10 Alkaline Phosphatase 84 units/L (35-129) 07/31/19 19:10 Total Protein 7.1 g/dL (6.3-8.2) 07/31/19 19:10 Albumin 4.4 g/dL (3.9-5) 07/31/19 19:10 Albumin/Globulin Ratio 1.6 % 07/31/19 19:10 Lipase 11 units/L (13-60) L 07/31/19 19:10 Urine Color Yellow (Yellow) 07/31/19 Unknown Urine Turbidity Clear (Clear) 07/31/19 Unknown Urine pH 5.0 (5.0-7.0) 07/31/19 Unknown Ur Specific [place] 1.024 (1.003-1.030) 07/31/19 Unknown Urine Protein <15 mg/dl mg/dL (Negative) 07/31/19 Unknown Urine Glucose (UA) 50 mg/dL (Negative) 07/31/19 Unknown Urine Ketones Neg mg/dL (Negative) 07/31/19 Unknown Urine Blood Neg (Negative) 07/31/19 Unknown Urine Nitrite Neg (Negative) 07/31/19 Unknown Urine Bilirubin Neg (Negative) 07/31/19 Unknown Urine Urobilinogen < 2.0 mg/dL (<2.0) 07/31/19 Unknown Ur Leukocyte Esterase Neg (Negative) 07/31/19 Unknown Urine WBC (Auto) 2.0 /HPF (0.0-6.0) 07/31/19 Unknown Urine RBC (Auto) 1.0 /HPF (0.0-6.0) 07/31/19 Unknown Urine Mucus Few /HPF 07/31/19 Unknown Active Medications - Current Medications Current Medications: Generic Name Dose Route Start Last Admin Trade Name Freq PRN Reason Stop Dose Admin Acetaminophen 650 mg 07/31/19 22:08 Tylenol PO Q4H PRN Pain MILD(1-3)/Fever >100.5/HAQ Famotidine 20 mg 08/01/19 13:00 Pepcid IV 08/01/19 23:59 PREOP NR Sodium Chloride 1,000 mls @ 125 mls/hr 07/31/19 22:15 08/01/19 08:34 Nacl 0.9% 1000 Ml IV 125 mls/hr DIRECT HEATHER Administration Piperacillin Sod/Tazobactam Sod 4.5 gm in 100 mls @ 200 mls/hr 08/01/19 06:00 08/01/19 05:21 Zosyn/Ns 4.5gm/100ml IV 200 mls/hr Q8HR HEATHER Administration Protocol Midazolam HCl 2 mg 08/01/19 13:00 Versed IV 08/01/19 23:59 PREOP NR Morphine Sulfate 2 mg 07/31/19 22:08 08/01/19 09:25 Morphine IV 2 mg Q4H PRN Administration Pain, Moderate (4-6) Ondansetron HCl 4 mg 07/31/19 22:08 Zofran IV Q8H PRN Nausea And Vomiting Sodium Chloride 10 ml 08/01/19 10:00 08/01/19 11:48 Sodium Chloride Flush Syringe 10 Ml IV Not Given BID HEATHER Sodium Chloride 10 ml 07/31/19 22:08 08/01/19 01:09 Sodium Chloride Flush Syringe 10 Ml IV 10 ml PRN PRN Administration LINE FLUSH
[2019-08-01] MEDS ORDERED: LIDOCAINE (1%) 10 MG/1 ML VIAL 20 ML MDV INFILTRATI ONE (13:50)
[2019-08-01] MEDS ORDERED: SODIUM CHLORIDE 0.9% IRRIG SOLN 2000 ML IR ONE (13:51)
[2019-08-01] MEDS ORDERED: WATER FOR IRRIG STERILE 1,500 ML BOTTLE IR ONE (13:51)
[2019-08-01] MEDS ORDERED: PHENYLEPHRINE/NS 1,000 MCG/10 ML SYRINGE (OR USE) IV ONE (13:54)
--- NOTE | 2019-08-01 16:27 | Post Operative Note ---
Date of procedure: 08/01/19 Pre-op diagnosis: acute calculus cholecystitis Post-op diagnosis: same Findings: very distended gallbladder with thick sludge and large stones, one of which was impacted in the neck of the gallbladder Procedure: robotic assisted cholecystectomy Anesthesia: PATO, local Surgeon: DYLAN GIRON Consulting Property Manager: MARTINA DALE (Thang Grady ) Estimated blood loss: other (300cc) Pathology: list (gallbladder) Specimen disposition: to lab Condition: stable Disposition: PACU
--- NOTE | 2019-08-01 16:49 | Post Anesthesia Evaluation ---
- Post Anesthesia Evaluation Patient Participated: Yes Airway Patent: Yes Stable Respiratory Function: Yes Nausea/Vomiting: No Temp > 96.8F: Yes Pain Manageable: Yes Adequeate Hydration: Yes Anesthesia Complications: No
[2019-08-01] MEDS: oxyCODONE /ACETAMINOPHEN 5-325MG TAB PO PRN (21:22)
[2019-08-02 05:48] LABS: Hematocrit 41.9 % (35.5-45.6); Hemoglobin 14.5 gm/dl (11.8-15.2); Mean Corpuscular HGB Conc 35 % (32-34); Mean Corpuscular Volume 81 fl (84-94); Platelet Count 500 K/mm3 (140-440); Red Blood Count 5.14 M/mm3 (3.65-5.03); Red Cell Distribution Width 12.5 % (13.2-15.2)
[2019-08-02] MEDS: oxyCODONE /ACETAMINOPHEN 5-325MG TAB PO PRN ×2 (07:49→12:55)
[2019-08-02] MEDS: SODIUM CHLORIDE 0.9% 1000 ML 1,000 ML IV SCH (07:51)
[2019-08-02] MEDS: PIPERACIL/TAZOBACTA 4.5/NS 100 4.5 GM/100 ML VIAL IV SCH (07:58)
--- NOTE | 2019-08-02 12:26 | Discharge Summary ---
Providers - Providers Date of Admission: 07/31/19 22:08 Attending physician: REMY JORDAN MD 07/31/19 22:08 Consult to Physician [CONS] Routine Comment: Consulting Provider: DYLAN GIRON Physician Instructions: Reason For Exam: acute cholecystitis Primary care physician: DATA COMMUNICATIONS SOFTWARE CONSULTANT Hospitalization Condition: Stable Hospital course: 29-year-old man who presents to the hospital with recurrent abdominal pain. He has been seen recently this month, he was found to have gallstones. He presents with worsening right upper quadrant pain sp cholecystectomy, pain control IV pain meds, antiemetics supportive care, improved and dc home DVT prophylaxis early ambulation Preventative health counseling performed for 17 minutes Diagnosis Acute cholecystitis Disposition: DC-01 TO HOME OR SELFCARE Time spent for discharge: 33 mins Core Measure Documentation - Palliative Care Palliative Care/ Comfort Measures: Not Applicable - Core Measures Any of the following diagnoses?: none Exam - Constitutional Vitals: Temp Pulse Resp BP Pulse Ox 98.4 F 93 H 16 133/74 96 08/02/19 04:30 08/02/19 04:30 08/02/19 04:30 08/02/19 04:30 08/02/19 04:30 General appearance: Present: no acute distress, well-nourished - EENT Eyes: Present: PERRL ENT: hearing intact, clear oral mucosa - Neck Neck: Present: supple, normal ROM - Respiratory Respiratory effort: normal Respiratory: bilateral: CTA - Cardiovascular Heart Sounds: Present: S1 & S2. Absent: rub, click - Extremities Extremities: pulses symmetrical, No edema Peripheral Pulses: within normal limits - Abdominal General gastrointestinal: Present: soft, non-tender, non-distended, normal bowel sounds Male genitourinary: Present: normal - Integumentary Integumentary: Present: clear, warm, dry - Musculoskeletal Musculoskeletal: gait normal, strength equal bilaterally - Psychiatric Psychiatric: appropriate mood/affect, intact judgment & insight - Neurologic Neurologic: CNII-XII intact, moves all extremities Plan Follow up with: DYLAN GIRON DO [Staff Physician] - 7 Days PRIMARY CARE, [Primary Care Provider] - 3-5 Days Prescriptions: oxyCODONE /ACETAMINOPHEN [Percocet 5/325 mg] 2 tab PO Q6H PRN #20 tablet PRN Reason: Pain, Moderate (4-6) Ondansetron [Zofran ODT TAB] 4 mg PO Q6HR PRN #20 tab.rapdis PRN Reason: Nausea
[2019-08-02 14:22] VITALS: BP 132/80
--- NOTE | 2019-08-02 15:03 | Progress Note ---
Assessment and Plan 29 yo M s/p robotic assisted cholecystectomy, POD 1 Plan: 1. reg diet 2. dc IVF 3. dc abx 4. prn PO pain control 5. Follow up in surgery clinic in 2 weeks. Ok to dc from surgery standpoint. Thank you, please call with questions. Subjective Date of service: 08/02/19 Narrative: Pt seen and examined. No complaints. Mild soreness near incisions. Tolerating diet. No n/v, f/c. Has been ambulating. Objective Vital Signs - 12hr 08/02/19 08/02/19 04:30 12:44 Temperature 98.4 F 98.8 F Pulse Rate 93 H 96 H Respiratory 16 18 Rate Blood Pressure 133/74 132/80 O2 Sat by Pulse 96 97 Oximetry - General physical appearance Narrative Exam: Gen: AAOx3. NAD CV: s1, S2+ resp: even and unlabored Abd: soft, ND, mild periincisional TTP. Incisions c/d/i Ext: no c/c/e - Labs 08/02/19 04:46 08/01/19 05:05
--- NOTE | 2019-08-02 17:18 | Operative Report ---
PREOPERATIVE DIAGNOSIS: Acute calculous cholecystitis. POSTOPERATIVE DIAGNOSIS: Acute calculous cholecystitis. FINDINGS: Very distended gallbladder with thick sludge and large stones, one of which was impacted in the neck of the gallbladder. PROCEDURE: Robotic-assisted cholecystectomy. ANESTHESIA: General endotracheal anesthesia, local. SURGEON: Cristal Velasquez DO. ASSISTANT TO THE PRESIDENT: Dalila Jackson MD and Ashlee Grady MD ESTIMATED BLOOD LOSS: 300 mL. PATHOLOGY: Gallbladder. SPECIMEN DISPOSITION: To lab. CONDITION ON DISCHARGE: The patient is stable to PACU. HISTORY OF PRESENT ILLNESS AND INDICATION: The patient is a 29-year-old male who presented to the Emergency Room for the third time in 2 weeks with complaints of severe epigastric abdominal pain radiating to the right upper quadrant. The pain was sharp and associated with nausea. The pain did start suddenly and was constant and gradually became worse. Laboratory data showed a white blood cell count, which was elevated and CT scan and ultrasound showed gallstones. The gallbladder was extremely distended and with thickened wall. The diagnosis of acute cholecystitis was made and it was recommended the patient undergo acute cholecystectomy. The patient was started on antibiotics and kept n.p.o. on IV fluids. All risks, benefits, alternatives to surgery were discussed with the patient. Consent obtained for robotic-assisted cholecystectomy, possible open, possible cholangiogram. PROCEDURE IN DETAIL: The patient was identified in the preoperative area and taken back to the operating room and placed on the operating table in supine position. After anesthesia was induced, the abdomen was prepped and draped in the usual sterile fashion. A timeout performed. The right arm was tucked and all bony prominences padded appropriately. Local anesthetic was infiltrated into the skin and subcutaneous tissue at all intended incision sites. A left upper quadrant melvin incision was made at Wheatley's point through which a Veress needle was inserted. The Veress needle position was confirmed using saline drop test and the abdomen insufflated to 50 mmHg. Once the abdomen was insufflated, the Veress needle was removed and the incision extended in order to facilitate placement of a 5 mm Optiview trocar. This was placed under direct visualization and the abdomen inspected. There was no underlying injury to any of the abdominal structures. Gallbladder was immediately visualized and appeared very distended. There were adhesions from the mid abdomen across the mid abdominal wall to the omentum. Two additional 8 mm robotic trocars were placed, one in the right mid abdomen and one in the right lateral abdomen under direct visualization. Some of the omental adhesions were then taken down using EndoShears. Once enough adhesions were taken down to facilitate placement of the supraumbilical port, a 12 mm balloon trocar was placed under direct visualization. The patient was placed in reverse Trendelenburg and tilted to the left. The gallbladder again was extremely distended and therefore it was decided to attempt to decompress the gallbladder. A laparoscopic needle and 30 mL syringe were used and the gallbladder was punctured at the fundus. There was very thick sludge and only a very small amount could be aspirated through the laparoscopic needle despite 3 different puncture locations. The gallbladder was also full of very large stones. At this point, the robot was docked. A monopolar hook was placed in arm #1, a Cadiere grasper in arm #2 and ProGrasp in arm #3. The surgeon was then transferred to the console. Gallbladder fundus was grasped and retracted cephalad and the infundibulum was grasped and retracted laterally. Due to the very distended nature of the gallbladder, it was difficult to retract the gallbladder. It was therefore decided to create an opening in the fundus of the gallbladder in order to facilitate suctioning of the thickened sludge. An incision was made using the hook electrocautery and the costumer assistant surgeon. Using the port #2, was able to suction out the thick sludge in the gallbladder through the cholecystotomy. The gallbladder was then decompressed and much easier to grasp and retract. The fundus and infundibulum were again retracted in the usual fashion and the neck of the gallbladder was dissected. The gallbladder wall was extremely thickened and the gallbladder neck scarred. It was therefore decided to perform a dome down approach. The lateral, medial and superior peritoneal reflections were scored using hook electrocautery and the gallbladder was very meticulously dissected off of the liver bed. This dissection along with the dissection of the neck of the gallbladder did take additional time due to the extremely inflamed and enlarged nature of the gallbladder. An additional 5 mm epigastric port was placed by the costumer assistant surgeon under direct visualization in order to facilitate suctioning during the procedure. Once the neck of the gallbladder was encountered, it was carefully dissected. The cystic artery was encased in thickened scar tissue and was partially transected during the dissection. This control was gained of the artery immediately and using the fenestrated bipolar, this was cauterized. The remainder of the cystic artery was very carefully dissected and a clip was placed on the proximal aspect and on the distal aspect. This was transected in between the clips using EndoShears. The only remaining structure seen entering the gallbladder was the cystic duct. Two clips were applied to the proximal aspect of the cystic duct and 1 distally and this was transected in between the clips using EndoShears by the costumer assistant surgeon. The gallbladder was then placed in the right upper quadrant and the gallbladder fossa and liver bed were irrigated with copious amount of saline. This was irrigated until the saline returned clear. The liver bed was checked for hemostasis, which was carefully ensured using electrocautery. The clips were visualized and intact. There was no bleeding or bile leakage seen from the surgical bed. The robot was then undocked and the surgeon scrubbed back in. The remainder of the case was performed laparoscopically. The gallbladder was placed into EndoCatch bag and placed to the right side of the abdomen. The Ray-Crescencio that was placed into the abdomen was removed. The gallbladder fossa and liver bed were once again irrigated and the patient was then returned to neutral position. Morison's pouch was once again irrigated and the irrigant returned clear. The liver bed was sprayed with Cherelle powder and hemostasis was very carefully ensured. The 12 mm incision was needed to be elongated in order to accommodate removal of the gallbladder. The gallbladder was removed via the 12 mm port and examined on the back table. There were only 2 structures seen entering the gallbladder, which were the cystic duct and artery. A 3 cm Calot's node was identified along with the specimen. The specimen was opened and there were five 2 cm stones in the gallbladder, one of which was lodged in the neck of the gallbladder. Fascia was closed with [id number] Vicryl sutures. The remainder of the ports were removed under laparoscopic visualization and the abdomen desufflated. The skin incisions were once again infiltrated with local anesthetic and the skin closed with 4-0 Monocryl subcuticular stitches and skin glue. At the end of the case, all sponge, instrument, sharp counts were correct x 2. The patient was awoken from anesthesia, extubated, and taken to PACU in stable condition. JOB# [id number] NK/NTS
== END 2019-08-02 14:10 | disposition home or self-care (01) | DRG 419 ==
LOC: ED 16:19 → 3A 22:08
PROVIDERS: ADMIT Internal Medicine Geriatric Medicine; ATTEND Internal Medicine
PROC: 0FT44ZZ Resection of Gallbladder, Percutaneous Endoscopic Approach (ICD-10-PCS; principal; 2019-08-01)
PROC: 8E0W4CZ Robotic Assisted Procedure of Trunk Region, Percutaneous Endoscopic Approach (ICD-10-PCS; 2019-08-01)
DX: K80.00 Calculus of gallbladder with acute cholecystitis without obstruction (principal); E66.9 Obesity, unspecified; F17.210 Nicotine dependence, cigarettes, uncomplicated; F10.10 Alcohol abuse, uncomplicated; Z68.35 Body mass index [BMI] 35.0-35.9, adult; Z90.49 Acquired absence of other specified parts of digestive tract; Z83.3 Family history of diabetes mellitus; Z79.899 Other long term (current) drug therapy
CPT/HCPCS: 36415; 80048; 80053; 81001; 83690; 85025; 85027; 85610; 85730; 88304; 90686; G0378; A4217; J1100; J1170; J2250; J2270; J2370; J2405; J2543; J2704; J3010; J7030; J7120